=== PATIENT | male | born 1980 | race Caucasian/White ===

== ENCOUNTER 2019-02-08 04:03 | Emergency (ER) | payer OTHER ==
--- NOTE | 2019-02-08 04:07 | ED Physician Documentation ---
PD HPI HEENT - Stated complaint Stated Complaint: SORE THROAT - History obtained from History obtained from: Patient - History of Present Illness Timing - onset: Yesterday Timing - details: Gradual onset, Constant, Waxing and waning Pain level now: 8 Location: Right ear Improves: Nothing Worsens: No: Swalllowing, Noise, Position, Temperatures, Everything Associated symptoms: Fever (Tmax 100.8), Cough Similar symptoms before: Has not had sx before Recently seen: Not recently seen - Additional information Additional information: patient complains of 1 to 2 days of sore throat, chills and sweats. He has had increasing right ear pain that is now severe. Review of Systems Constitutional: reports: Fever, Chills, Myalgias, Fatigue, Sweats Ears: reports: Ear pain Nose: reports: Congestion Throat: reports: Sore throat Cardiac: reports: Reviewed and negative Respiratory: reports: Reviewed and negative GI: reports: Reviewed and negative PD PAST MEDICAL HISTORY - Past Medical History Past Medical History: No - Past Surgical History Past Surgical History: No - Present Medications Home Medications: Ambulatory Orders Medication Instructions Recorded Confirmed Cephalexin [Keflex] 500 mg PO Q6H #28 capsule 02/08/19 Oxycodone HCl/Acetaminophen 1 - 2 each PO Q6H PRN #14 tablet 02/08/19 [Percocet 5-325 mg Tablet] - Allergies Allergies/Adverse Reactions: Allergies Allergy/AdvReac Type Severity Reaction Status Date / Time vancomycin AdvReac Unknown Verified 02/08/19 04:17 - Living Situation Living Arrangement: reports: At home PD ED PE NORMAL - Vitals Vital signs reviewed: Yes - General General: Alert and oriented X 3, Well developed/nourished, Other (to be in waxing and waning degrees of painful distress due to right ear pain) - HEENT HEENT: Moist mucous membranes - Neck Neck: Supple, no meningeal sign - Respiratory Respiratory: No respiratory distress, Clear bilaterally PD ED PE EXPANDED - HEENT HEENT: R TM red, R TM bulging, R TM loss of landmarks, Pharyngeal erythema. No: Tonsillar exudate Results - Vitals Vitals: Vital Signs - 24 hr 02/08/19 02/08/19 02/08/19 04:14 05:08 05:10 Temperature 37.1 C 36.5 C Heart Rate 79 79 Respiratory 17 16 17 Rate Blood Pressure 146/71 H 156/100 H O2 Saturation 97 100 Oxygen O2 Source Room air - Labs Labs: Microbiology 02/08/19 04:15 Group A Strep Throat Culture - Preliminary Throat CULTURE IN PROGRESS. RESULTS TO FOLLOW. Laboratory Tests 02/08/19 04:15 Group A Strep Rapid Negative PD MEDICAL DECISION MAKING - ED course Complexity details: reviewed results, re-evaluated patient, considered differential, d/w patient Departure - Departure Disposition: Home, Self Care Clinical Impression: Sore throat, Otitis media Condition: Good Instructions: ED Otitis Media Acute Adult, ED Pharyngitis Viral Report Pending Prescriptions: Cephalexin [Keflex] 500 mg PO Q6H #28 capsule Oxycodone HCl/Acetaminophen [Percocet 5-325 mg Tablet] 1 - 2 each PO Q6H PRN #14 tablet PRN Reason: pain Forms: Activity restrictions Discharge Date/Time: 02/08/19 05:17
[2019-02-08] MEDS ORDERED: IBUPROFEN 600 MG TABLET PO STA (04:42)
[2019-02-08] MEDS ORDERED: HYDROcod/ACET 5/325 Prepack 4 PO STA (04:42)
[2019-02-08] MEDS ORDERED: oxyCODONE/ACET 5/325 Prepack 4 PO STA (05:02)
[2019-02-08] MEDS ORDERED: cephALEXin 250 MG CAPSULE PO STA (05:02)
[2019-02-08 05:08] VITALS: BP 156/100
== END 2019-02-08 05:17 | disposition home or self-care (01) ==
LOC: ED 04:03
DX: J02.9 Acute pharyngitis, unspecified (principal); H66.91 Otitis media, unspecified, right ear
CPT/HCPCS: 87070; 87430; 99283; A9270